=== PATIENT | male | born 1990 | race African-American/Black ===

== ENCOUNTER 2018-08-22 16:48 | Emergency (ER) | payer SELFPAY ==
[~2018-08-22] VITALS: Ht 172.7 cm; Wt 63.5 kg
[2018-08-22 19:03] VITALS: BP 141/58
[2018-08-22] MEDS ORDERED: AZITHROMYCIN 250 MG TAB PO ONE (19:30)
[2018-08-22] MEDS ORDERED: cefTRIAXone SOD 1,000 MG VL IM ONE (19:30)
== END 2018-08-22 20:13 | disposition home or self-care (01) ==
LOC: ER 16:48
DX: A64 Unspecified sexually transmitted disease (principal); Z88.1 Allergy status to other antibiotic agents
CPT/HCPCS: 96372; 99283; J0696

== ENCOUNTER 2019-11-16 07:36 | Emergency (ER) | payer SELFPAY ==
[~2019-11-16] VITALS: Ht 172.7 cm; Wt 61.2 kg
[2019-11-16 07:40] VITALS: BP 128/86
[2019-11-16 08:58] LABS: Urine Bacteria FEW /hpf (None Seen); Urine Blood 1+ /uL (Negative); Urine Specific Gravity 1.019 (1.001-1.035); Urine WBC 610 /hpf (0 - 3)
[2019-11-16] MEDS ORDERED: cefTRIAXone SOD 1,000 MG VL IM ONE (09:00)
== END 2019-11-16 09:48 | disposition home or self-care (01) ==
LOC: ER 07:36
DX: N34.2 Other urethritis (principal); Z20.2 Contact with and (suspected) exposure to infections with a predominantly sexual mode of transmission; Z88.1 Allergy status to other antibiotic agents
CPT/HCPCS: 81001; 96372; 99283; J0696